=== PATIENT | female | born 1995 | race Two or more races ===

== ENCOUNTER 2020-11-29 09:46 | Emergency (ER) | payer OTHER ==
[~2020-11-29] VITALS: Ht 165.1 cm; Wt 70.3 kg
[2020-11-29] MEDS ORDERED: BACTRIM DS TAB1 EACH PO (14:13)
== END 2020-11-29 14:34 | disposition home or self-care (01) ==
LOC: ER 09:46
DX: N39.0 Urinary tract infection, site not specified (principal); R10.31 Right lower quadrant pain